=== PATIENT | female | born 1945 | race Caucasian/White ===

== ENCOUNTER → 2018-05-14 08:42 | Outpatient (CLI) | payer MEDICARE, OTHER, SELFPAY ==
--- NOTE | 2018-05-14 08:48 | MM_ITS ---
MM Dig screening mamm BI w/CAD CAD Screening COMPARISON: Digital mammograms with CAD 04/18/2017 and 03/16/2016 INDICATION: There is no personal or family history of breast cancer TECHNIQUE: Standard CC and MLO images were obtained. R2 CAD reviewed. FINDINGS: Prominent diffuse heterogenic fiber glandular densities are seen throughout both breast lessening the sensitivity of mammography. There are mole markers on the left breast. Scattered benign-appearing calcifications are seen in each breast. There is prominent diffuse skin thickening of the right breast which was not seen on the previous years mammogram. There is no obvious suspicious lesion in the right breast however. Certainly the findings could be due to mastoiditis however I would recommend the patient have a follow-up CT scan the chest with contrast to exclude axillary or mediastinal adenopathy and/or mass. There is faint arterial calcification in each breast. There are no suspicious microcalcifications in either breast. IMPRESSION: Moderately and diffusely dense parenchymal pattern with new finding of diffuse skin thickening the right breast see recommendations above. Since are no suspicious for breast etiology of the skin thickening recommend the patient continue with yearly screening mammography BI-RADS Category: 2 Benign Finding(s) RECOMMENDED FOLLOW-UP: 1YR - 1 YEAR FOLLOW-UP (A letter has been sent to the patient regarding results of the study.)
== END ==
PROVIDERS: Family Provider Family Medicine; PCP Family Medicine; Visit Provider Family Medicine
DX: Z12.31 Encounter for screening mammogram for malignant neoplasm of breast (principal)
CPT/HCPCS: 77067

== ENCOUNTER → 2018-05-16 14:26 | Outpatient (POV) | payer MEDICARE, OTHER, SELFPAY | PROVIDERS: Family Provider Family Medicine; PCP Family Medicine | DX: Z00.00 Encounter for general adult medical examination without abnormal findings (principal) ==